=== PATIENT | male | born 1985 | race Caucasian/White ===

== ENCOUNTER 2018-02-16 18:23 | Emergency (ER) | payer OTHER ==
[~2018-02-16] VITALS: Ht 180.3 cm; Wt 100.4 kg
[2018-02-16 18:26] VITALS: BP 150/85
[2018-02-16] MEDS ORDERED: FAMOTIDINE 20 MG TAB PO ONE (20:40)
[2018-02-16] MEDS ORDERED: DEXAMETHASONE 10 MG/ML VIAL IVP ONE (20:40)
[2018-02-16] MEDS ORDERED: diphenhydrAMINE 50 MG/ML VIAL IVP ONE (20:40)
[2018-02-16 21:18] VITALS: BP 150/85
== END 2018-02-16 21:18 | disposition home or self-care (01) ==
LOC: MED 18:23
DX: T78.1XXA Other adverse food reactions, not elsewhere classified, initial encounter (principal); R21 Rash and other nonspecific skin eruption; X58.XXXA Exposure to other specified factors, initial encounter
CPT/HCPCS: 96374; 96375; 99284; J1100; J1200